=== PATIENT | female | born 1995 | race Caucasian/White ===

== ENCOUNTER 2016-08-29 17:51 | Emergency (ER) | payer OTHER ==
[2016-08-29 17:37] LABS: URINE SOURCE CLEAN CATCH
[2016-08-29 17:41] LABS: URINE APPEARANCE CLEAR; URINE BILIRUBIN NEG (NEG); URINE BLOOD NEG (NEG); URINE COLOR YELLOW; URINE GLUCOSE NEG (NORM); URINE KETONE NEG (NEG); URINE LEUKOCYTE ESTERASE NEG (NEG); URINE NITRATE NEG (NEG); URINE PH 6.5 (5-8); URINE PROTEIN NEG (NEG); URINE SPECIFIC GRAVITY 1.015 (1.003-1.035); URINE UROBILINOGEN 0.2 MG/DL (NORM)
[2016-08-29 17:42] LABS: MICRO INDICATED? NO
[~2016-08-29 17:51] MED LIST: BACTRIM DS TABL1 TA1; BENTYL10 M1 PO; DICYCLOMINE HCL20 MG; NO MEDICATIONS; PRENATAL1 TA1 PO; PYRIDIUM PO; VOLTAREN75 MG PO; ZOFRAN; ZOFRAN PO; ZOFRANODT PO
[2016-08-29 17:52] LABS: INFLUENZA A NEG (NEG); INFLUENZA B NEG (NEG)
== END 2016-08-29 18:19 | disposition home or self-care (01) ==
LOC: SED 17:51
PROVIDERS: Emergency Medicine
DX: B34.9 Viral infection, unspecified (principal); K21.9 Gastro-esophageal reflux disease without esophagitis
CPT/HCPCS: 81003; 84703; 87651; 87804; 94640; 99283

== ENCOUNTER 2016-11-26 11:20 | Emergency (ER) | payer OTHER ==
--- NOTE | ~2016-11-26 | CR281 ---
[facility] A Service [facility] RADIOLOGY TEXT RESULTS PATIENT: SANDRA BISHOP LOCATION: SED : 95 UNIT #: [id number] AGE: [address]: Kylah Cummings APRN SEX: F ORDER DR: [id number] [address] [address] [id number] E MR#: [id number] Acc #: [id number] NAME: SANDRA BISHOP : 1995 SEX: F STUDY DATE/TIME: 11/26/2016 11:45 UNIT: SED ROOM: STUDY DESCRIPTION: CR Wrist Min 3 View Lt Attending Physician: Kylah Cummings A.P.R.N. Ordering Physician: Kylah Cummings A.P.R.N. [facility] REPORT This report is preliminary unless electronic signature is present. EXAM Left wrist. HISTORY Constant wrist and forearm pain for the past 6 weeks. TECHNIQUE Three views of the wrist were obtained. FINDINGS Wrist evaluation in multiple projections shows normal mineralization of the bony structures about the wrist and satisfactory articular relationship of the radius and ulna to the proximal carpal row and of the distal carpal segments to the metacarpal bases. There is no indication of fracture or dislocation, and no soft tissue radiopaque foreign body is present. No congenital defects are apparent. IMPRESSION Normal wrist. Dictated by... Vikas Norton M.D. THIS IS AN ELECTRONICALLY VERIFIED REPORT Vikas oNrton M.D. at 11/27/2016 7:14 AM RLF/alex TD: 11/26/2016 15:46 JOB #: [id number] [facility] A [facility] RADIOLOGY TEXT RESULTS PATIENT: SANDRA BISHOP LOCATION: SED : 95 UNIT #: [id number] AGE: [address]: Kylah Cummings APRN SEX: F ORDER DR: MEDICAL IMAGING REPORT Page 1 of 1
--- NOTE | ~2016-11-26 | CR132 ---
[facility] A Service of [facility] & [facility] RADIOLOGY TEXT RESULTS PATIENT: SANDRA BISHOP LOCATION: SED : 95 UNIT #: [id number] AGE: [address]: Kylah Cummings APRN SEX: F ORDER DR: [id number] [address] [address] [id number] E MR#: [id number] Acc #: [id number] NAME: SANDRA BISHOP : 1995 SEX: F STUDY DATE/TIME: 11/26/2016 11:45 UNIT: SED ROOM: STUDY DESCRIPTION: CR Forearm 2 View Lt Attending Physician: Kylah Cummings A.P.R.N. Ordering Physician: Kylah Cummings A.P.R.N. [facility] IMAGING REPORT This report is preliminary unless electronic signature is present. EXAM Left forearm. HISTORY Constant forearm pain over the past 6 weeks. TECHNIQUE Two views of the forearm were obtained. FINDINGS AP and lateral views of the forearm show no evidence of fracture or destructive bone lesion. No periosteal elevation is seen. No radiodense foreign bodies are noted. Adjacent soft tissue structures are normal. IMPRESSION Normal forearm. Dictated by... Vikas Norton M.D. THIS IS AN ELECTRONICALLY VERIFIED REPORT Vikas Norton M.D. at 11/27/2016 7:14 AM SHAHRZADF/alex TD: 11/26/2016 15:45 JOB #: [id number] MEDICAL IMAGING REPORT Page 1 of 1
== END 2016-11-26 12:58 | disposition home or self-care (01) ==
LOC: SED 11:20
DX: M25.532 Pain in left wrist (principal); M79.632 Pain in left forearm; K21.9 Gastro-esophageal reflux disease without esophagitis
CPT/HCPCS: 29125; 73090; 73110; 99283